=== PATIENT | female | born 1980 | race Caucasian/White ===

== ENCOUNTER 2017-11-16 12:08 | Emergency (ER) | payer OTHER ==
[~2017-11-16] VITALS: Ht 162.6 cm; Wt 67.2 kg
--- NOTE | 2017-11-16 12:10 | NUR ---
Mikey mclain in [facility] - 11/16/17 at 1213 by KERRIE PATIENT AMBULATED TO ER BED 6
[2017-11-16 12:14] VITALS: BP 130/94
--- NOTE | 2017-11-16 12:22 | NUR ---
C/O INTERMITTENT CHEST PAIN X 4 DAYS, BACK PAIN TODAY WITH NAUSEA; CHRISTOFER V/D; TAKING CLINDAMYCIN AND IBUPROFEN FOR TOOTH EXTRACTION X 7 DAYS; HELPER/DRIVER TIEDA AT BEDSIDE FOR EKG; DR RUIZ NOTIFIED HX; CHRISTOFER RX; CHRISTOFER Addendum: 11/16/17 at 1254 by [email or web address] Patient being evaluated by DR RUIZ at bedside. Addendum: 11/16/17 at 1254 by [email or web address] C/O COUGH X YESTERDAY.
--- NOTE | 2017-11-16 12:33 | NUR ---
EKG DONE REVIEWED BY DR. RUIZ
[2017-11-16] MEDS ORDERED: KETOROLAC 30 MG/ML VIAL IVP ONE (12:35)
[2017-11-16 12:56] LABS: BASOPHILS # (AUTO) 0.1 K/uL (0.00-0.22); BASOPHILS % (AUTO) 1.1 % (0.0-2.0); EOSINOPHILS # (AUTO) 0.9 K/uL (0-0.4); EOSINOPHILS % (AUTO) 10.9 % (0.0-4.0); HEMATOCRIT 40.8 % (36-48); HEMOGLOBIN 13.4 g/dL (12.0-16.0); LYMPHOCYTES # (AUTO) 1.5 K/uL (2.5-16.5); LYMPHOCYTES % (AUTO) 19.4 % (20.5-51.1); MEAN CORPUSCULAR HEMOGLOBIN 27 pg (27-31); MEAN CORPUSCULAR HGB CONC 33 g/dL (33-37); MEAN CORPUSCULAR VOLUME 81.5 fL (80-94); MONOCYTES # (AUTO) 0.7 K/uL (0.8-1.0); NEUTROPHILS # (AUTO) 4.7 K/uL (1.8-7.7); NEUTROPHILS % (AUTO) 59.6 % (42.2-75.2); PLATELET COUNT (AUTO) 252 K/uL (140-450); RED BLOOD CELL COUNT(AUTO) 5.01 MIL/uL (4.20-5.40); RED CELL DISTRIBUTION WIDTH 13.9 % (11.6-13.7); WHITE BLOOD COUNT (AUTO) 7.9 K/uL (4.8-10.8)
[2017-11-16 13:12] LABS: APPEARANCE,URINE CLEAR (CLEAR); BILIRUBIN,URINE NEGATIVE (NEGATIVE); BLOOD, URINE NEGATIVE (NEGATIVE); COLOR,URINE YELLOW (YELLOW); LEUKOCYTE ESTERASE ,URINE NEGATIVE (NEGATIVE); NITRITE, URINE NEGATIVE (NEGATIVE); UGLUCOSE NEGATIVE (NEGATIVE)
[2017-11-16] MEDS ORDERED: diphenhydrAMINE 50 MG/ML VIAL IVP ONE (13:15)
[2017-11-16] MEDS ORDERED: methylPREDNISolone SS 125 MG/2 ML VIAL IVP ONE (13:15)
[2017-11-16] MEDS ORDERED: NACL 0.9% 1,000 ML IV ONE (13:15)
[2017-11-16] MEDS ORDERED: CLINDAMYCIN 600 MG/4 ML VIAL IV ONE (13:15)
[2017-11-16 13:19] LABS: ANION GAP 10.3 (8-16); CARBON DIOXIDE 28.9 mmol/L (21-32); CREATININE 0.7 mg/dL (0.6-1.3); POTASSIUM 3.2 mmol/L (3.5-5.1); PROTHROMBIN TIME 9.4 secs (10.8-13.4)
[2017-11-16 13:23] LABS: RBC,URINE NONE SEEN /HPF (0-5); WBC,URINE 0-5 (RARE) /HPF (0-5)
[2017-11-16 13:24] LABS: ALBUMIN 4.1 g/dL (3.4-5.0); TOTAL BILIRUBIN 0.2 mg/dL (0.0-1.0)
[2017-11-16 13:24] LABS: BARBITURATE, URINE NEG. ng/ml (NEG <=200); BENZODIAZEPINE, URINE NEG. ng/mL (NEG <=200); CANNABINOID, URINE NEG. ng/mL (NEG <=50); COCAINE, URINE NEG. ng/mL (NEG <=300); OPIATE, URINE NEG. ng/mL (NEG <=2000); PHENCYCLIDINE SCREEN,URINE NEG. ng/mL (NEG <=25)
--- NOTE | 2017-11-16 14:26 | NUR ---
Patient discharged with v/s stable. Written and verbal after care instructions given and explained. Patient alert, oriented and verbalized understanding of instructions. Ambulatory with steady gait. All questions addressed prior to discharge. ID band removed. Patient advised to follow up with PMD. Rx of PROMETHAZINE, PREDNISONE & AZITHROMYCIN given. Patient educated on indication of medication including possible reaction and side effects. Opportunity to ask questions provided and answered.
[2017-11-16 14:27] VITALS: BP 115/74
== END 2017-11-16 14:26 | disposition home or self-care (01) ==
LOC: MED 12:08
DX: J45.909 Unspecified asthma, uncomplicated (principal)
CPT/HCPCS: 36415; 71045; 80053; 80305; 81001; 81025; 84484; 85025; 85379; 85610; 85730; 93005; 96374; 96375; 99285; G0482; J1200; J1885; J2930; J3490; J7030

== ENCOUNTER 2022-12-03 10:52 | Emergency (ER) | payer OTHER ==
[~2022-12-03] VITALS: Ht 162.6 cm; Wt 73.0 kg
[2022-12-03 11:02] VITALS: BP 160/102; PULSE 83; RESP 18; TEMP 99; O2SAT 100
[2022-12-03 12:18] LABS: APPEARANCE,URINE CLEAR (CLEAR); BILIRUBIN,URINE NEGATIVE (NEGATIVE); BLOOD, URINE NEGATIVE (NEGATIVE); COLOR,URINE YELLOW (YELLOW); LEUKOCYTE ESTERASE ,URINE NEGATIVE (NEGATIVE); NITRITE, URINE NEGATIVE (NEGATIVE); PROTEIN,URINE NEGATIVE (NEGATIVE); UGLUCOSE NEGATIVE (NEGATIVE); UROBILINOGEN,URINE 0.2 EU/dL (0.2 - 1)
[2022-12-03] MEDS ORDERED: METOCLOPRAMIDE 10 MG TAB PO ONE (12:20)
[2022-12-03] MEDS ORDERED: KETOROLAC 30 MG/ML VIAL IM ONE (12:20)
[2022-12-03] MEDS ORDERED: ACETAMINOPHEN EXTRA STRENGTH 500 MG TAB PO ONE (12:20)
[2022-12-03 14:15] VITALS: BP 160/102; PULSE 83; RESP 18; TEMP 99; O2SAT 100
== END 2022-12-03 14:15 | disposition home or self-care (01) ==
LOC: MED 10:52
DX: N83.201 Unspecified ovarian cyst, right side (principal); G43.109 Migraine with aura, not intractable, without status migrainosus; Z88.0 Allergy status to penicillin; Z98.890 Other specified postprocedural states
CPT/HCPCS: 76856; 81003; 81025; 93976; 96372; 99285; J1885; J8597; Q0092